=== PATIENT | female | born 1940 | race Caucasian/White ===

== ENCOUNTER 2016-07-20 13:52 | Outpatient (CLI) | payer MEDICARE, BC ==
[2016-07-20 16:55] LABS: INR-International Normal Ratio 2.4; Prothrombin Time 26.4 SEC (12.0-14.7)
== END 2016-07-20 13:53 | disposition home or self-care (01) ==
LOC: MADLAB 13:52
PROVIDERS: ATTEND Nurse Practitioner
DX: I48.91 Unspecified atrial fibrillation (principal)
CPT/HCPCS: 36415; 85610

== ENCOUNTER 2016-08-17 08:55 | Outpatient (CLI) | payer MEDICARE, BC ==
[2016-08-17 09:26] LABS: INR-International Normal Ratio 2.2; Prothrombin Time 24.4 SEC (12.0-14.7)
== END 2016-08-17 08:56 | disposition home or self-care (01) ==
LOC: MADLAB 08:55
PROVIDERS: ATTEND Nurse Practitioner
DX: I48.91 Unspecified atrial fibrillation (principal)
CPT/HCPCS: 36415; 85610

== ENCOUNTER 2016-09-14 09:11 | Outpatient (CLI) | payer MEDICARE, BC ==
[2016-09-14 10:11] LABS: INR-International Normal Ratio 2.4; Prothrombin Time 26.4 SEC (12.0-14.7)
== END 2016-09-14 09:12 | disposition home or self-care (01) ==
LOC: MADLAB 09:11
PROVIDERS: ATTEND Nurse Practitioner
DX: I48.91 Unspecified atrial fibrillation (principal)
CPT/HCPCS: 36415; 85610

== ENCOUNTER 2016-10-12 08:54 | Outpatient (CLI) | payer MEDICARE, BC ==
[2016-10-12 09:22] LABS: INR-International Normal Ratio 3.3; Prothrombin Time 33.4 SEC (12.0-14.7)
== END 2016-10-12 08:55 | disposition home or self-care (01) ==
LOC: MADLAB 08:54
PROVIDERS: ATTEND Nurse Practitioner
DX: I48.91 Unspecified atrial fibrillation (principal)
CPT/HCPCS: 36415; 85610

== ENCOUNTER 2016-10-27 08:34 | Outpatient (CLI) | payer MEDICARE, BC ==
[2016-10-27 09:03] LABS: INR-International Normal Ratio 3.4; Prothrombin Time 33.7 SEC (12.0-14.7)
== END 2016-10-27 08:35 | disposition home or self-care (01) ==
LOC: MADLAB 08:34
PROVIDERS: ATTEND Nurse Practitioner
DX: I48.91 Unspecified atrial fibrillation (principal)
CPT/HCPCS: 36415; 85610

== ENCOUNTER 2016-11-09 09:06 | Outpatient (CLI) | payer MEDICARE, BC ==
[2016-11-09 09:41] LABS: INR-International Normal Ratio 2.4; Prothrombin Time 26.1 SEC (12.0-14.7)
== END 2016-11-09 09:07 | disposition home or self-care (01) ==
LOC: MADLAB 09:06
PROVIDERS: ATTEND Nurse Practitioner
DX: I48.91 Unspecified atrial fibrillation (principal)
CPT/HCPCS: 36415; 85610

== ENCOUNTER 2016-11-23 10:44 | Outpatient (CLI) | payer MEDICARE, BC ==
[2016-11-23 14:54] LABS: INR-International Normal Ratio 2.4; Prothrombin Time 26.1 SEC (12.0-14.7)
== END 2016-11-23 10:45 | disposition home or self-care (01) ==
LOC: MADLAB 10:44
PROVIDERS: ATTEND Nurse Practitioner
DX: I48.91 Unspecified atrial fibrillation (principal)
CPT/HCPCS: 36415; 85610

== ENCOUNTER 2016-12-14 09:27 | Outpatient (CLI) | payer MEDICARE, BC ==
[2016-12-14 09:51] LABS: INR-International Normal Ratio 2.7; Prothrombin Time 28.6 SEC (12.0-14.7)
== END 2016-12-14 09:28 | disposition home or self-care (01) ==
LOC: MADLAB 09:27
PROVIDERS: ATTEND Nurse Practitioner
DX: I48.91 Unspecified atrial fibrillation (principal)
CPT/HCPCS: 36415; 85610

== ENCOUNTER 2017-01-10 09:43 | Outpatient (CLI) | payer MEDICARE, BC ==
[2017-01-10 10:00] LABS: INR-International Normal Ratio 2.9; Prothrombin Time 29.7 SEC (12.0-14.7)
== END 2017-01-10 09:44 | disposition home or self-care (01) ==
LOC: MADLAB 09:43
PROVIDERS: ATTEND Nurse Practitioner
DX: I48.91 Unspecified atrial fibrillation (principal)
CPT/HCPCS: 36415; 85610

== ENCOUNTER 2017-03-09 08:30 | Outpatient (CLI) | payer MEDICARE, BC ==
[2017-03-09 09:01] LABS: INR-International Normal Ratio 2.6; Prothrombin Time 28.5 SEC (12.0-14.7)
== END 2017-03-09 08:31 | disposition home or self-care (01) ==
LOC: MADLAB 08:30
PROVIDERS: ATTEND Nurse Practitioner
DX: I48.91 Unspecified atrial fibrillation (principal)
CPT/HCPCS: 36415; 85610

== ENCOUNTER 2017-04-05 09:11 | Outpatient (CLI) | payer MEDICARE, BC ==
[2017-04-05 10:38] LABS: INR-International Normal Ratio 2.2; Prothrombin Time 25.4 SEC (12.0-14.7)
== END 2017-04-05 09:12 | disposition home or self-care (01) ==
LOC: MADLAB 09:11
PROVIDERS: ATTEND Nurse Practitioner
DX: I48.91 Unspecified atrial fibrillation (principal)
CPT/HCPCS: 36415; 85610

== ENCOUNTER 2017-05-03 09:19 | Outpatient (CLI) | payer MEDICARE, BC ==
[2017-05-03 10:00] LABS: INR-International Normal Ratio 2.4; Prothrombin Time 27.3 SEC (12.0-14.7)
== END 2017-05-03 09:20 | disposition home or self-care (01) ==
LOC: MADLAB 09:19
PROVIDERS: ATTEND Nurse Practitioner
DX: I48.91 Unspecified atrial fibrillation (principal)
CPT/HCPCS: 36415; 85610

== ENCOUNTER 2017-05-31 09:02 | Outpatient (CLI) | payer MEDICARE, BC ==
[2017-05-31 10:37] LABS: INR-International Normal Ratio 2.4; Prothrombin Time 27.3 SEC (12.0-14.7)
== END 2017-05-31 09:03 | disposition home or self-care (01) ==
LOC: MADLABBHPM 09:02
PROVIDERS: ATTEND Nurse Practitioner
DX: I48.91 Unspecified atrial fibrillation (principal)
CPT/HCPCS: 36415; 85610

== ENCOUNTER 2017-06-28 08:48 | Outpatient (CLI) | payer MEDICARE, BC ==
[2017-06-28 09:09] LABS: INR-International Normal Ratio 2.1; Prothrombin Time 23.8 SEC (12.0-14.7)
== END 2017-06-28 08:49 | disposition home or self-care (01) ==
LOC: MADLAB 08:48
PROVIDERS: ATTEND Nurse Practitioner
DX: I48.91 Unspecified atrial fibrillation (principal)
CPT/HCPCS: 36415; 85610

== ENCOUNTER 2017-07-25 08:55 | Outpatient (CLI) | payer MEDICARE, BC ==
[2017-07-25 09:28] LABS: INR-International Normal Ratio 2.1; Prothrombin Time 24.1 SEC (12.0-14.7)
== END 2017-07-25 08:56 | disposition home or self-care (01) ==
LOC: MADLAB 08:55
PROVIDERS: ATTEND Nurse Practitioner
DX: I48.91 Unspecified atrial fibrillation (principal)
CPT/HCPCS: 36415; 85610

== ENCOUNTER 2017-08-23 08:44 | Outpatient (CLI) | payer MEDICARE, BC ==
[2017-08-23 09:36] LABS: INR-International Normal Ratio 2.6; Prothrombin Time 29.1 SEC (12.0-14.7)
== END 2017-08-23 08:45 | disposition home or self-care (01) ==
LOC: MADLAB 08:44
PROVIDERS: ATTEND Nurse Practitioner
DX: I48.91 Unspecified atrial fibrillation (principal)
CPT/HCPCS: 36415; 85610

== ENCOUNTER 2017-09-20 09:01 | Outpatient (CLI) | payer MEDICARE, BC ==
[2017-09-20 10:03] LABS: INR-International Normal Ratio 2.2; Prothrombin Time 25.6 SEC (12.0-14.7)
== END 2017-09-20 09:02 | disposition home or self-care (01) ==
LOC: MADLAB 09:01
PROVIDERS: ATTEND Nurse Practitioner
DX: I48.91 Unspecified atrial fibrillation (principal)
CPT/HCPCS: 36415; 85610

== ENCOUNTER 2017-10-18 09:31 | Outpatient (CLI) | payer MEDICARE, BC ==
[2017-10-18 10:44] LABS: INR-International Normal Ratio 2.2; Prothrombin Time 25.3 SEC (12.0-14.7)
== END 2017-10-18 09:32 | disposition home or self-care (01) ==
LOC: MADLAB 09:31
PROVIDERS: ATTEND Nurse Practitioner
DX: I48.91 Unspecified atrial fibrillation (principal)
CPT/HCPCS: 36415; 85610

== ENCOUNTER 2017-11-15 08:45 | Outpatient (CLI) | payer MEDICARE, BC ==
[2017-11-15 10:56] LABS: INR-International Normal Ratio 2.2; Prothrombin Time 24.9 SEC (12.0-14.7)
== END 2017-11-15 08:46 | disposition home or self-care (01) ==
LOC: MADLAB 08:45
PROVIDERS: ATTEND Nurse Practitioner
DX: I48.91 Unspecified atrial fibrillation (principal)
CPT/HCPCS: 36415; 85610

== ENCOUNTER 2017-12-13 08:19 | Outpatient (CLI) | payer MEDICARE, BC ==
[2017-12-13 09:14] LABS: Prothrombin Time 23.6 SEC (12.0-14.7)
== END 2017-12-13 08:20 | disposition home or self-care (01) ==
LOC: MADLAB 08:19
PROVIDERS: ATTEND Nurse Practitioner
DX: I48.91 Unspecified atrial fibrillation (principal)
CPT/HCPCS: 36415; 85610

== ENCOUNTER 2018-01-16 08:19 | Outpatient (CLI) | payer MEDICARE, BC ==
[2018-01-16 08:50] LABS: INR-International Normal Ratio 2.2; Prothrombin Time 24.4 SEC (12.0-14.7)
== END 2018-01-16 08:20 | disposition home or self-care (01) ==
LOC: MADLAB 08:19
PROVIDERS: ATTEND Nurse Practitioner
DX: I48.91 Unspecified atrial fibrillation (principal)
CPT/HCPCS: 36415; 85610

== ENCOUNTER 2018-02-14 08:27 | Outpatient (CLI) | payer MEDICARE, BC ==
[2018-02-14 09:40] LABS: INR-International Normal Ratio 2.3; Prothrombin Time 25.4 SEC (12.0-14.7)
== END 2018-02-14 08:28 | disposition home or self-care (01) ==
LOC: MADLAB 08:27
PROVIDERS: ATTEND Nurse Practitioner
DX: Z51.81 Encounter for therapeutic drug level monitoring (principal); I48.91 Unspecified atrial fibrillation; Z79.01 Long term (current) use of anticoagulants
CPT/HCPCS: 36415; 85610

== ENCOUNTER 2018-03-14 08:08 | Outpatient (CLI) | payer MEDICARE, BC ==
[2018-03-14 10:26] LABS: INR-International Normal Ratio 2.5; Prothrombin Time 27.3 SEC (12.0-14.7)
== END 2018-03-14 08:09 | disposition home or self-care (01) ==
LOC: MADLAB 08:08
PROVIDERS: ATTEND Nurse Practitioner
DX: I48.91 Unspecified atrial fibrillation (principal)
CPT/HCPCS: 36415; 85610

== ENCOUNTER 2018-05-10 08:34 | Outpatient (CLI) | payer MEDICARE, BC ==
[2018-05-10 09:08] LABS: INR-International Normal Ratio 2.2; Prothrombin Time 24.4 SEC (12.0-14.7)
== END 2018-05-10 08:35 | disposition home or self-care (01) ==
LOC: MADLAB 08:34
PROVIDERS: ATTEND Nurse Practitioner
DX: I48.91 Unspecified atrial fibrillation (principal)
CPT/HCPCS: 36415; 85610

== ENCOUNTER 2018-06-07 08:35 | Outpatient (CLI) | payer MEDICARE, BC ==
[2018-06-07 09:17] LABS: INR-International Normal Ratio 2.7; Prothrombin Time 28.8 SEC (12.0-14.7)
== END 2018-06-07 08:36 | disposition home or self-care (01) ==
LOC: MADLAB 08:35
PROVIDERS: ATTEND Nurse Practitioner
DX: Z51.81 Encounter for therapeutic drug level monitoring (principal); I48.91 Unspecified atrial fibrillation; Z79.01 Long term (current) use of anticoagulants
CPT/HCPCS: 36415; 85610

== ENCOUNTER 2018-08-01 07:54 | Outpatient (CLI) | payer MEDICARE, BC ==
[2018-08-01 09:39] LABS: INR-International Normal Ratio 2.2; Prothrombin Time 24.2 SEC (12.0-14.7)
== END 2018-08-01 07:55 | disposition home or self-care (01) ==
LOC: MADLAB 07:54
PROVIDERS: ATTEND Nurse Practitioner
DX: I48.91 Unspecified atrial fibrillation (principal)
CPT/HCPCS: 36415; 85610

== ENCOUNTER 2018-08-30 08:17 | Outpatient (CLI) | payer MEDICARE, BC ==
[2018-08-30 09:03] LABS: INR-International Normal Ratio 2.5; Prothrombin Time 27.3 SEC (12.0-14.7)
== END 2018-08-30 08:18 | disposition home or self-care (01) ==
LOC: MADLAB 08:17
PROVIDERS: ATTEND Nurse Practitioner
DX: Z51.81 Encounter for therapeutic drug level monitoring (principal); I48.91 Unspecified atrial fibrillation; Z79.01 Long term (current) use of anticoagulants
CPT/HCPCS: 36415; 85610

== ENCOUNTER 2018-09-26 08:42 | Outpatient (CLI) | payer MEDICARE, BC ==
[2018-09-26 09:54] LABS: INR-International Normal Ratio 2.8; Prothrombin Time 29.5 SEC (12.0-14.7)
== END 2018-09-26 08:43 | disposition home or self-care (01) ==
LOC: MADLAB 08:42
PROVIDERS: ATTEND Nurse Practitioner Family
DX: Z51.81 Encounter for therapeutic drug level monitoring (principal); I48.91 Unspecified atrial fibrillation; Z79.01 Long term (current) use of anticoagulants
CPT/HCPCS: 36415; 85610

== ENCOUNTER 2018-10-25 10:28 | Outpatient (CLI) | payer MEDICARE, BC ==
[2018-10-25 11:01] LABS: INR-International Normal Ratio 3.1
== END 2018-10-25 10:29 | disposition home or self-care (01) ==
LOC: MADLAB 10:28
PROVIDERS: ATTEND Nurse Practitioner Family
DX: Z51.81 Encounter for therapeutic drug level monitoring (principal); I48.91 Unspecified atrial fibrillation; Z79.01 Long term (current) use of anticoagulants
CPT/HCPCS: 36415; 85610

== ENCOUNTER 2018-11-08 08:16 | Outpatient (CLI) | payer MEDICARE, BC ==
[2018-11-08 09:11] LABS: INR-International Normal Ratio 2.5; Prothrombin Time 27.4 SEC (12.0-14.7)
== END 2018-11-08 08:17 | disposition home or self-care (01) ==
LOC: MADLABBHPM 08:16
PROVIDERS: ATTEND Nurse Practitioner Family
DX: Z51.81 Encounter for therapeutic drug level monitoring (principal); I48.91 Unspecified atrial fibrillation; Z79.01 Long term (current) use of anticoagulants
CPT/HCPCS: 36415; 85610

== ENCOUNTER 2018-11-22 08:12 | Outpatient (CLI) | payer MEDICARE, BC ==
[2018-11-22 08:33] LABS: INR-International Normal Ratio 2.4
== END 2018-11-22 08:13 | disposition home or self-care (01) ==
LOC: MADLABBHPM 08:12
PROVIDERS: ATTEND Nurse Practitioner Family
DX: Z51.81 Encounter for therapeutic drug level monitoring (principal); I48.91 Unspecified atrial fibrillation; Z79.01 Long term (current) use of anticoagulants
CPT/HCPCS: 36415; 85610

== ENCOUNTER 2018-12-13 07:59 | Outpatient (CLI) | payer MEDICARE, BC ==
[2018-12-13 09:06] LABS: INR-International Normal Ratio 2.2; Prothrombin Time 24.6 SEC (12.0-14.7)
== END 2018-12-13 08:00 | disposition home or self-care (01) ==
LOC: MADLAB 07:59
PROVIDERS: ATTEND Nurse Practitioner Family
DX: Z51.81 Encounter for therapeutic drug level monitoring (principal); I48.91 Unspecified atrial fibrillation; Z79.01 Long term (current) use of anticoagulants
CPT/HCPCS: 36415; 85610

== ENCOUNTER 2019-01-08 07:56 | Outpatient (CLI) | payer MEDICARE, BC ==
[2019-01-08 08:33] LABS: INR-International Normal Ratio 2.5; Prothrombin Time 26.8 SEC (12.0-14.7)
== END 2019-01-08 07:57 | disposition home or self-care (01) ==
LOC: MADLAB 07:56
PROVIDERS: ATTEND Nurse Practitioner Family
DX: Z51.81 Encounter for therapeutic drug level monitoring (principal); I48.2 Chronic atrial fibrillation; Z79.01 Long term (current) use of anticoagulants
CPT/HCPCS: 36415; 85610

== ENCOUNTER 2019-02-07 08:16 | Outpatient (CLI) | payer MEDICARE, BC ==
[2019-02-07 08:40] LABS: INR-International Normal Ratio 2.6; Prothrombin Time 27.3 SEC (12.0-14.7)
== END 2019-02-07 08:17 | disposition home or self-care (01) ==
LOC: MADLAB 08:16
PROVIDERS: ATTEND Nurse Practitioner Family
DX: Z51.81 Encounter for therapeutic drug level monitoring (principal); I48.91 Unspecified atrial fibrillation; Z79.01 Long term (current) use of anticoagulants
CPT/HCPCS: 36415; 85610

== ENCOUNTER 2019-04-04 08:28 | Outpatient (CLI) | payer MEDICARE, BC ==
[2019-04-04 08:49] LABS: INR-International Normal Ratio 1.9; Prothrombin Time 21.4 SEC (12.0-14.7)
== END 2019-04-04 08:29 | disposition home or self-care (01) ==
LOC: MADLAB 08:28
PROVIDERS: ATTEND Internal Medicine Hematology & Oncology
DX: Z51.81 Encounter for therapeutic drug level monitoring (principal); I48.91 Unspecified atrial fibrillation; Z79.01 Long term (current) use of anticoagulants
CPT/HCPCS: 36415; 85610

== ENCOUNTER 2019-04-18 08:23 | Outpatient (CLI) | payer MEDICARE, BC ==
[2019-04-18 08:54] LABS: INR-International Normal Ratio 2.6; Prothrombin Time 27.8 SEC (12.0-14.7)
== END 2019-04-18 08:24 | disposition home or self-care (01) ==
LOC: MADLAB 08:23
PROVIDERS: ATTEND Internal Medicine Hematology & Oncology
DX: I48.91 Unspecified atrial fibrillation (principal); Z79.01 Long term (current) use of anticoagulants
CPT/HCPCS: 36415; 85610

== ENCOUNTER 2019-05-02 08:04 | Outpatient (CLI) | payer MEDICARE, BC ==
[2019-05-02 08:36] LABS: INR-International Normal Ratio 2.6; Prothrombin Time 27.4 SEC (12.0-14.7)
== END 2019-05-02 08:05 | disposition home or self-care (01) ==
LOC: MADLAB 08:04
PROVIDERS: ATTEND Internal Medicine Hematology & Oncology
DX: Z51.81 Encounter for therapeutic drug level monitoring (principal); I48.91 Unspecified atrial fibrillation; Z79.01 Long term (current) use of anticoagulants
CPT/HCPCS: 36415; 85610

== ENCOUNTER 2019-05-29 08:19 | Outpatient (CLI) | payer MEDICARE, BC ==
[2019-05-29 09:05] LABS: INR-International Normal Ratio 2.2; Prothrombin Time 24.2 SEC (12.0-14.7)
== END 2019-05-29 08:20 | disposition home or self-care (01) ==
LOC: MADLAB 08:19
PROVIDERS: ATTEND Internal Medicine Hematology & Oncology
DX: Z51.81 Encounter for therapeutic drug level monitoring (principal); I48.91 Unspecified atrial fibrillation; Z79.01 Long term (current) use of anticoagulants
CPT/HCPCS: 36415; 85610

== ENCOUNTER 2019-06-26 08:16 | Outpatient (CLI) | payer MEDICARE, BC ==
[2019-06-26 08:55] LABS: INR-International Normal Ratio 2.1; Prothrombin Time 23.7 SEC (12.0-14.7)
== END 2019-06-26 08:17 | disposition home or self-care (01) ==
LOC: MADLAB 08:16
PROVIDERS: ATTEND Internal Medicine Hematology & Oncology
DX: Z51.81 Encounter for therapeutic drug level monitoring (principal); I48.91 Unspecified atrial fibrillation; Z79.01 Long term (current) use of anticoagulants
CPT/HCPCS: 36415; 85610

== ENCOUNTER 2019-07-24 08:16 | Outpatient (CLI) | payer MEDICARE, BC ==
[2019-07-24 08:41] LABS: INR-International Normal Ratio 2.5; Prothrombin Time 26.8 SEC (12.0-14.7)
== END 2019-07-24 08:17 | disposition home or self-care (01) ==
LOC: MADLAB 08:16
PROVIDERS: ATTEND Internal Medicine Hematology & Oncology
DX: Z51.81 Encounter for therapeutic drug level monitoring (principal); I48.91 Unspecified atrial fibrillation; Z79.01 Long term (current) use of anticoagulants
CPT/HCPCS: 36415; 85610

== ENCOUNTER 2019-08-22 08:11 | Outpatient (CLI) | payer MEDICARE, BC ==
[2019-08-22 08:34] LABS: INR-International Normal Ratio 2.7; Prothrombin Time 28.2 SEC (12.0-14.7)
== END 2019-08-22 08:12 | disposition home or self-care (01) ==
LOC: MADLAB 08:11
PROVIDERS: ATTEND Internal Medicine Hematology & Oncology
DX: Z51.81 Encounter for therapeutic drug level monitoring (principal); I48.91 Unspecified atrial fibrillation; Z79.01 Long term (current) use of anticoagulants
CPT/HCPCS: 36415; 85610

== ENCOUNTER 2019-09-19 08:21 | Outpatient (CLI) | payer MEDICARE, BC ==
[2019-09-19 21:55] LABS: INR-International Normal Ratio 2.9; Prothrombin Time 30.4 SEC (12.0-14.7)
== END 2019-09-19 08:22 | disposition home or self-care (01) ==
LOC: MADLABBHPM 08:21
PROVIDERS: ATTEND Internal Medicine Hematology & Oncology
DX: Z51.81 Encounter for therapeutic drug level monitoring (principal); I48.91 Unspecified atrial fibrillation; Z79.01 Long term (current) use of anticoagulants
CPT/HCPCS: 36415; 85610

== ENCOUNTER 2019-11-14 08:27 | Outpatient (CLI) | payer MEDICARE, BC ==
[2019-11-14 08:50] LABS: INR-International Normal Ratio 2.5; Prothrombin Time 26.9 sec (12.0-14.7)
== END 2019-11-14 08:28 | disposition home or self-care (01) ==
LOC: MADLAB 08:27
PROVIDERS: ATTEND Internal Medicine Hematology & Oncology
DX: Z51.81 Encounter for therapeutic drug level monitoring (principal); I48.20 Chronic atrial fibrillation, unspecified; Z79.01 Long term (current) use of anticoagulants
CPT/HCPCS: 36415; 85610

== ENCOUNTER 2019-12-12 08:13 | Outpatient (CLI) | payer MEDICARE, BC ==
[2019-12-12 08:40] LABS: Prothrombin Time 31.1 sec (12.0-14.7)
== END 2019-12-12 08:14 | disposition home or self-care (01) ==
LOC: MADLAB 08:13
PROVIDERS: ATTEND Internal Medicine Hematology & Oncology
DX: Z51.81 Encounter for therapeutic drug level monitoring (principal); I48.91 Unspecified atrial fibrillation; Z79.01 Long term (current) use of anticoagulants
CPT/HCPCS: 36415; 85610

== ENCOUNTER 2020-01-15 08:22 | Outpatient (CLI) | payer MEDICARE, BC ==
[2020-01-15 08:42] LABS: INR-International Normal Ratio 3.9; Prothrombin Time 37.8 sec (12.0-14.7)
== END 2020-01-15 08:23 | disposition home or self-care (01) ==
LOC: MADLAB 08:22
PROVIDERS: ATTEND Internal Medicine Cardiovascular Disease
DX: Z51.81 Encounter for therapeutic drug level monitoring (principal); I48.20 Chronic atrial fibrillation, unspecified; Z79.01 Long term (current) use of anticoagulants
CPT/HCPCS: 36415; 85610

== ENCOUNTER 2020-01-29 08:26 | Outpatient (CLI) | payer MEDICARE, BC ==
[2020-01-29 08:43] LABS: INR-International Normal Ratio 3.5; Prothrombin Time 35.1 sec (12.0-14.7)
== END 2020-01-29 08:27 | disposition home or self-care (01) ==
LOC: MADLAB 08:26
PROVIDERS: ATTEND Internal Medicine Cardiovascular Disease
DX: I48.91 Unspecified atrial fibrillation (principal)
CPT/HCPCS: 36415; 85610

== ENCOUNTER 2020-02-13 09:05 | Outpatient (CLI) | payer MEDICARE, BC ==
[2020-02-13 09:37] LABS: INR-International Normal Ratio 3.3; Prothrombin Time 33.6 sec (12.0-14.7)
== END 2020-02-13 09:06 | disposition home or self-care (01) ==
LOC: MADLAB 09:05
PROVIDERS: ATTEND Internal Medicine Cardiovascular Disease
DX: Z51.81 Encounter for therapeutic drug level monitoring (principal); I48.91 Unspecified atrial fibrillation; Z79.01 Long term (current) use of anticoagulants
CPT/HCPCS: 36415; 85610

== ENCOUNTER 2020-02-26 07:55 | Outpatient (CLI) | payer MEDICARE, BC ==
[2020-02-26 08:21] LABS: INR-International Normal Ratio 3.6; Prothrombin Time 35.3 sec (12.0-14.7)
== END 2020-02-26 07:56 | disposition home or self-care (01) ==
LOC: MADLAB 07:55
PROVIDERS: ATTEND Internal Medicine Cardiovascular Disease
DX: Z51.81 Encounter for therapeutic drug level monitoring (principal); I48.91 Unspecified atrial fibrillation; Z79.01 Long term (current) use of anticoagulants
CPT/HCPCS: 36415; 85610

== ENCOUNTER 2020-03-12 08:06 | Outpatient (CLI) | payer MEDICARE, BC ==
[2020-03-12 08:28] LABS: INR-International Normal Ratio 3.7; Prothrombin Time 36.6 sec (12.0-14.7)
== END 2020-03-12 08:07 | disposition home or self-care (01) ==
LOC: MADLAB 08:06
PROVIDERS: ATTEND Internal Medicine Hematology & Oncology
DX: Z51.81 Encounter for therapeutic drug level monitoring (principal); I48.20 Chronic atrial fibrillation, unspecified; Z79.01 Long term (current) use of anticoagulants
CPT/HCPCS: 36415; 85610

== ENCOUNTER 2020-03-19 07:55 | Outpatient (CLI) | payer MEDICARE, BC ==
[2020-03-19 08:14] LABS: INR-International Normal Ratio 2.4; Prothrombin Time 25.7 sec (12.0-14.7)
== END 2020-03-19 07:56 | disposition home or self-care (01) ==
LOC: MADLAB 07:55
PROVIDERS: ATTEND Internal Medicine Cardiovascular Disease
DX: Z51.81 Encounter for therapeutic drug level monitoring (principal); I48.91 Unspecified atrial fibrillation; Z79.01 Long term (current) use of anticoagulants
CPT/HCPCS: 36415; 85610

== ENCOUNTER 2020-04-01 08:06 | Outpatient (CLI) | payer MEDICARE, BC ==
[2020-04-01 08:35] LABS: INR-International Normal Ratio 2.2
== END 2020-04-01 08:07 | disposition home or self-care (01) ==
LOC: MADLAB 08:06
PROVIDERS: ATTEND Internal Medicine Cardiovascular Disease
DX: I48.91 Unspecified atrial fibrillation (principal)
CPT/HCPCS: 36415; 85610

== ENCOUNTER 2020-05-08 15:14 | Inpatient (IN) | payer MEDICARE, BC ==
[2020-05-08] MEDS ORDERED: Senokot S 8.6-50 MG TAB PO PRN (20:22)
[2020-05-08] MEDS ORDERED: Cyclobenzaprine 10 MG TAB PO PRN (20:23)
[2020-05-08] MEDS ORDERED: Warfarin Sodium 5 MG TAB PO SCH (21:00)
[2020-05-08] MEDS: Famotidine 20 MG TAB PO SCH (21:32)
[2020-05-08] MEDS: Enoxaparin Sodium 80 MG/0.8 ML SYRINGE SC SCH (21:32)
[2020-05-08] MEDS: Metoprolol Tartrate 25 MG TAB PO SCH (21:33)
[2020-05-08] MEDS: Senokot S 8.6-50 MG TAB PO SCH (21:33)
[2020-05-08] MEDS: Gabapentin 100 MG CAP PO SCH (21:33)
[2020-05-08] MEDS: Ascorbic Acid 500 mg Chewable Tablet PO SCH (21:33)
[2020-05-08] MEDS: Acetaminophen 500 MG TAB PO SCH (23:37)
[2020-05-09] MEDS: Acetaminophen 500 MG TAB PO SCH ×4 (05:13→23:48)
[2020-05-09 07:28] LABS: INR-International Normal Ratio 1.6
[2020-05-09] MEDS: Gabapentin 100 MG CAP PO SCH ×3 (08:48→20:15)
[2020-05-09] MEDS: Ascorbic Acid 500 mg Chewable Tablet PO SCH ×2 (08:48→20:17)
[2020-05-09] MEDS: Famotidine 20 MG TAB PO SCH ×2 (08:48→20:17)
[2020-05-09] MEDS: Calcium Carbonate 500 MG TAB PO SCH (08:48)
[2020-05-09] MEDS: Senokot S 8.6-50 MG TAB PO SCH (08:56)
[2020-05-09] MEDS: Enoxaparin Sodium 80 MG/0.8 ML SYRINGE SC SCH ×2 (08:56→20:18)
[2020-05-09] MEDS: Ferrous Sulfate 325 MG TAB PO SCH ×2 (08:57→17:34)
[2020-05-09] MEDS: Metoprolol Tartrate 25 MG TAB PO SCH ×2 (08:57→20:14)
[2020-05-09] MEDS ORDERED: Polyethylene Glycol 3350 17 GM Packet PO SCH (09:00)
[2020-05-10] MEDS: Acetaminophen 500 MG TAB PO SCH ×4 (05:46→23:30)
[2020-05-10 05:47] LABS: Hemoglobin 7.4 g/dL (12.0-16.0); Platelet Count 295 thou/uL (130-400)
[2020-05-10] MEDS: Ferrous Sulfate 325 MG TAB PO SCH ×2 (10:25→17:21)
[2020-05-10] MEDS: Metoprolol Tartrate 25 MG TAB PO SCH ×2 (10:25→20:56)
[2020-05-10] MEDS: Famotidine 20 MG TAB PO SCH ×2 (10:25→20:55)
[2020-05-10] MEDS: Gabapentin 100 MG CAP PO SCH ×3 (10:25→20:55)
[2020-05-10] MEDS: Ascorbic Acid 500 mg Chewable Tablet PO SCH ×2 (10:26→20:55)
[2020-05-10] MEDS: Calcium Carbonate 500 MG TAB PO SCH (10:26)
[2020-05-10] MEDS: Enoxaparin Sodium 80 MG/0.8 ML SYRINGE SC SCH ×2 (10:30→21:00)
--- NOTE | 2020-05-10 10:54 | HP ---
PRIMARY CARE PHYSICIAN: Out of town. REASON FOR ADMISSION: For acute rehabilitation at [facility] status post a fall leading to a right hip fracture status post ORIF and worsening left facial basal cell carcinoma. HISTORY OF PRESENT ILLNESS: Ms. Richey is an 79-year-old female with a medical history of atrial fibrillation, squamous cell carcinoma diagnosed in 2006. The patient experienced a mechanical fall in her home setting in [place] with family close in proximity with frequent contact. She does have a history of chronic Coumadin therapy due to atrial fibrillation. She did not have any loss of consciousness and on presentation in the emergency room, she was noted to have deterioration of the left side of her face. She was diagnosed with squamous cell carcinoma in 2006 with no followup. The patient states she had been isolated since September secondary to COVID- pandemic and she comes from the area that has progressively worsened in the last month. She has kept indoors since COV- and family has not come in yet. In the emergency room, she was noted to have atrial fibrillation with RVR. She was admitted for right hip fracture secondary to the mechanical fall and evaluation has indicated that the left side of her face and back with suspected squamous cell carcinoma. The patient had an ORIF of the right hip fracture repaired by Dr. Brooke. She was able to tolerate the procedure well. On the May 03, she was seen by the Oncology team due to deterioration of her face, she had a biopsy and pathology confirmed basal cell carcinoma. The lesion is likely metastatic and unresectable and not amendable to radiation. The patient recommended by Oncology to follow up outpatient with Dr. Mena for further treatment plan and consider hospice as a reasonable choice of care. Due to this, the patient was transferred to [facility] for skilled rehabilitation as she was physically deconditioned. She was continued on Coumadin bridged with Lovenox postoperatively. The patient had a hemoglobin of 7.7 upon discharge with an INR of 1.5. Upon evaluation of the patient, she complained of some left neck pain. She states pain is controlled with the current pain medication. She does not know what plan she would have for long-term care postoperatively for now. She complains of some mild pain to the right hip at the site of surgery. PAST MEDICAL HISTORY: Atrial fibrillation, squamous cell carcinoma diagnosed in 2006, and hypertension. PAST SURGICAL HISTORY: The patient has a history of cholecystectomy. ALLERGIES: NO KNOWN DRUG ALLERGIES. MEDICATIONS: 1. Warfarin 5 mg. 2. Diltiazem XR 180 mg. 3. Lisinopril/hydrochlorothiazide 10/12.5. 4. Ascorbic acid 500 b.i.d. 5. Calcium carbonate 500 daily. 6. Flexeril 5 mg p.o. t.i.d. p.r.n. 7. Lovenox 80 b.i.d. 8. Pepcid 20 b.i.d. 9. Ferrous sulfate 325 b.i.d. 10. Gabapentin 100 b.i.d. 11. Metoprolol 12.5 mg b.i.d. SOCIAL HISTORY: The patient denies tobacco use, alcohol use, or illicit drug use. The patient lives at home by herself with family close by. FAMILY HISTORY: The patient states father of unknown medical history. Mother from unknown medical history. CODE STATUS: The patient is a DNR, confirmed by the patient. REVIEW OF SYSTEMS: CONSTITUTIONAL: Alert. Complains of generalized weakness. EYES: Left ectropion. ENT: Denies difficulty swallowing or irritation to the throat. Complains of the hearing loss to the left. RESPIRATORY: Denies any shortness of breath or cough. CARDIOVASCULAR: Denies any chest pain, palpitations, or orthopnea. GASTROINTESTINAL: Denies any nausea or vomiting. MUSCULOSKELETAL: Limited mobility due to recent right hip fracture and pain. NEUROLOGIC: Denies any numbness or tingling to extremities. Complains of left facial droop. SKIN: The patient does have a significant necrotic left neck lesion to the side of the face and some eye changes noted. PSYCHIATRIC: Denies any hallucinations or delusions. PHYSICAL EXAM: VITAL SIGNS: Blood pressure 97.6, Pulse 90, Respirations 18, Sp02 Nasal cannula 95%, Temperature 97.6 GENERAL: Elderly female, awake, alert, in no distress HEENT: Head is atraumatic, extensive decay to left lateral face involving the anterior mandible extending to the posterior neck. Decay goes to the subcutaneous tissue, muscle exposed in some areas, no visible bone, bleeding noted and very malodorous. Left sided facial droop, unable to life eyebrow, unable to close left eye, left eye with excessive tearing, equal pupils bilateral. Nose normal, pharynx normal, no oral involvement, moist oral mucous membrane. Left hear hearing loss. NECK: No cervical spine tenderness, Trachea is midline. RESPIRATORY: No respiratory distress, bilateral breath sounds, no wheezing, rales, or rhonchi. CARDIOVASCULAR: Irregularly irregular rate ABDOMEN:Positive bowel sounds, soft, nontender, nondistended HIP: Healing incision with [address], tenderness to palpation EXTREMITIES: Moves all extremities NEUROLOGIC: GCS 15. Left-sided facial asymmetry. ASSESSMENT: 1. Physical deconditioning. 2. Gait instability. 3. Basal cell carcinoma to left face and neck. 4. Status post fall on Coumadin. 5. Right intertrochanteric femur fracture status post open reduction and internal fixation. 6. Atrial fibrillation with rapid ventricular response improved with control. 7. Hypertension. 8. No tobacco use. 9. Gait instability. PLAN: The patient is an 79-year-old female, who has been admitted to [facility] for skilled rehabilitation. We will consult Physical Therapy to help with gait strengthening and ambulation. We will consult Occupational Therapy to help with activities of daily living. We will consult with pharmacist to help with Lovenox and Coumadin bridge due to her atrial fibrillation. We will monitor the patient closely for any hemodynamic instability. We will change the dressing to incision sites routinely and the patient to follow up with the Dr. Brooke, orthopedic surgeon. We will assist the patient in planning follow up with Dr. Mena, oncologists due to the metastatic basal cell carcinoma. We will change dressings to face daily. We will place the patient on DVT prophylaxis with the Coumadin and Lovenox for now and on GI prophylaxis with Pepcid. We will monitor hemoglobin closely due to significant acute blood loss anemia due to recent surgery. Code status, the patient is a DNR. Total times used to prepare this history and physical is greater than 45 minutes. Job ID: [id number] [facility]
[2020-05-10] MEDS: Warfarin Sodium 5 MG TAB PO SCH (17:21)
[2020-05-10] MEDS: Ondansetron ODT 4 MG TAB PO PRN (18:30)
[2020-05-11] MEDS: Acetaminophen 500 MG TAB PO SCH ×3 (06:11→17:40)
[2020-05-11 06:46] LABS: INR-International Normal Ratio 2.3; Prothrombin Time 25.8 sec (12.0-14.7)
[2020-05-11 06:52] LABS: Calc. Creatinine Clearance 97 mL/min (70-130); Estimated GFR-MDRD Greater than 90
[2020-05-11] MEDS: Ferrous Sulfate 325 MG TAB PO SCH ×2 (09:06→17:41)
[2020-05-11] MEDS: Famotidine 20 MG TAB PO SCH ×2 (09:07→20:38)
[2020-05-11] MEDS: Calcium Carbonate 500 MG TAB PO SCH (09:07)
[2020-05-11] MEDS: Metoprolol Tartrate 25 MG TAB PO SCH ×2 (09:07→20:37)
[2020-05-11] MEDS: Gabapentin 100 MG CAP PO SCH ×3 (09:07→20:36)
[2020-05-11] MEDS: Ascorbic Acid 500 mg Chewable Tablet PO SCH ×2 (09:07→20:36)
[2020-05-11] MEDS: Enoxaparin Sodium 80 MG/0.8 ML SYRINGE SC SCH ×2 (09:08→20:38)
[2020-05-11] MEDS: Guaifenesin DM 100-10/5 ML UDCUP PO PRN ×3 (12:03→20:38)
[2020-05-11] MEDS: Warfarin Sodium 5 MG TAB PO SCH (17:42)
[2020-05-12] MEDS: Acetaminophen 500 MG TAB PO SCH ×5 (00:13→23:40)
[2020-05-12 05:24] LABS: INR-International Normal Ratio 2.8; Prothrombin Time 30.5 sec (12.0-14.7)
[2020-05-12] MEDS: Calcium Carbonate 500 MG TAB PO SCH (07:58)
[2020-05-12] MEDS: Enoxaparin Sodium 80 MG/0.8 ML SYRINGE SC SCH (07:58)
[2020-05-12] MEDS: Gabapentin 100 MG CAP PO SCH ×3 (07:59→19:51)
[2020-05-12] MEDS: Ferrous Sulfate 325 MG TAB PO SCH ×2 (07:59→16:59)
[2020-05-12] MEDS: Ascorbic Acid 500 mg Chewable Tablet PO SCH ×2 (08:00→19:51)
[2020-05-12] MEDS: Metoprolol Tartrate 25 MG TAB PO SCH ×2 (08:00→19:55)
[2020-05-12] MEDS: Famotidine 20 MG TAB PO SCH ×2 (08:00→19:51)
[2020-05-12] MEDS: Guaifenesin DM 100-10/5 ML UDCUP PO PRN ×2 (14:25→20:00)
[2020-05-12] MEDS ORDERED: Warfarin Sodium 2 MG TAB PO SCH (17:00)
[2020-05-12] MEDS: Ondansetron ODT 4 MG TAB PO PRN (17:57)
[2020-05-13 05:42] LABS: Hemoglobin 6.9 g/dL (12.0-16.0); Platelet Count 224 thou/uL (130-400)
[2020-05-13 05:50] LABS: INR-International Normal Ratio 3.4; Prothrombin Time 35.4 sec (12.0-14.7)
[2020-05-13] MEDS: Acetaminophen 500 MG TAB PO SCH ×3 (05:52→17:34)
[2020-05-13] MEDS: Ascorbic Acid 500 mg Chewable Tablet PO SCH ×2 (08:24→20:42)
[2020-05-13] MEDS: Gabapentin 100 MG CAP PO SCH ×3 (08:24→20:41)
[2020-05-13] MEDS: Metoprolol Tartrate 25 MG TAB PO SCH ×2 (08:24→20:41)
[2020-05-13] MEDS: Famotidine 20 MG TAB PO SCH ×2 (08:25→20:41)
[2020-05-13] MEDS: Calcium Carbonate 500 MG TAB PO SCH (08:25)
[2020-05-13] MEDS: Ferrous Sulfate 325 MG TAB PO SCH ×2 (08:25→17:34)
[2020-05-13] MEDS: Guaifenesin DM 100-10/5 ML UDCUP PO PRN ×2 (16:14→20:42)
[2020-05-14] MEDS: Acetaminophen 500 MG TAB PO SCH ×4 (00:51→16:59)
[2020-05-14 07:19] LABS: INR-International Normal Ratio 3.8; Prothrombin Time 38.2 sec (12.0-14.7)
[2020-05-14] MEDS: Metoprolol Tartrate 25 MG TAB PO SCH ×2 (08:27→20:29)
[2020-05-14] MEDS: Calcium Carbonate 500 MG TAB PO SCH (08:27)
[2020-05-14] MEDS: Ascorbic Acid 500 mg Chewable Tablet PO SCH ×2 (08:27→20:26)
[2020-05-14] MEDS: Gabapentin 100 MG CAP PO SCH ×3 (08:27→20:26)
[2020-05-14] MEDS: Ferrous Sulfate 325 MG TAB PO SCH ×2 (08:29→16:59)
[2020-05-14] MEDS: Famotidine 20 MG TAB PO SCH ×2 (08:29→20:26)
[2020-05-15] MEDS: Acetaminophen 500 MG TAB PO SCH ×5 (00:06→23:40)
[2020-05-15] MEDS: Guaifenesin DM 100-10/5 ML UDCUP PO PRN ×2 (05:32→21:22)
[2020-05-15 05:34] LABS: INR-International Normal Ratio 3.5; Prothrombin Time 36.2 sec (12.0-14.7)
[2020-05-15] MEDS: Gabapentin 100 MG CAP PO SCH ×3 (08:29→21:18)
[2020-05-15] MEDS: Famotidine 20 MG TAB PO SCH ×2 (08:29→21:16)
[2020-05-15] MEDS: Calcium Carbonate 500 MG TAB PO SCH (08:30)
[2020-05-15] MEDS: Metoprolol Tartrate 25 MG TAB PO SCH ×2 (08:30→21:17)
[2020-05-15] MEDS: Ferrous Sulfate 325 MG TAB PO SCH ×2 (08:30→17:41)
[2020-05-15] MEDS: Ascorbic Acid 500 mg Chewable Tablet PO SCH ×2 (08:30→21:16)
[2020-05-15] MEDS: Ondansetron ODT 4 MG TAB PO PRN (15:56)
[2020-05-16 05:33] LABS: Hemoglobin 7.1 g/dL (12.0-16.0); Platelet Count 325 thou/uL (130-400)
[2020-05-16 05:45] LABS: INR-International Normal Ratio 3.1
[2020-05-16] MEDS: Acetaminophen 500 MG TAB PO SCH ×3 (06:32→17:34)
[2020-05-16] MEDS: Calcium Carbonate 500 MG TAB PO SCH (08:23)
[2020-05-16] MEDS: Metoprolol Tartrate 25 MG TAB PO SCH ×2 (08:23→20:59)
[2020-05-16] MEDS: Ascorbic Acid 500 mg Chewable Tablet PO SCH ×2 (08:23→21:00)
[2020-05-16] MEDS: Ferrous Sulfate 325 MG TAB PO SCH ×2 (08:23→17:34)
[2020-05-16] MEDS: Famotidine 20 MG TAB PO SCH ×2 (08:24→20:57)
[2020-05-16] MEDS: Gabapentin 100 MG CAP PO SCH ×3 (08:24→20:58)
[2020-05-16] MEDS: Ondansetron ODT 4 MG TAB PO PRN ×2 (08:33→16:25)
--- NOTE | 2020-05-16 11:32 | RAD ---
PORTABLE CHEST: History: Hypoxia Comparison: 05-02-2020 FINDINGS: Heart size is enlarged. There is patchy bilateral infiltrative lung changes seen, new as compared to the prior exam. IMPRESSION: Bilateral infiltrates. This would be suspicious for Covid pneumonia. POS: SHAY
[2020-05-16] MEDS ORDERED: predniSONE 20 MG TAB PO SCH (16:30)
[2020-05-16] MEDS ORDERED: Warfarin Sodium 2 MG TAB PO SCH (17:00)
[2020-05-16] MEDS ORDERED: Azithromycin 250 MG TAB PO SCH (17:15)
[2020-05-16] MEDS: Ipratropium/Albuterol Sulfate 4 GM AER IH SCH (17:35)
[2020-05-16] MEDS: guaiFENesin/DM ER PO SCH (20:58)
[2020-05-17] MEDS: Acetaminophen 500 MG TAB PO SCH ×4 (05:16→17:09)
[2020-05-17 06:22] LABS: INR-International Normal Ratio 2.3; Prothrombin Time 26.1 sec (12.0-14.7)
[2020-05-17] MEDS: Famotidine 20 MG TAB PO SCH ×2 (09:06→21:43)
[2020-05-17] MEDS: predniSONE 20 MG TAB PO SCH (09:07)
[2020-05-17] MEDS: guaiFENesin/DM ER PO SCH ×2 (09:07→21:43)
[2020-05-17] MEDS: Metoprolol Tartrate 25 MG TAB PO SCH ×2 (09:07→21:44)
[2020-05-17] MEDS: Gabapentin 100 MG CAP PO SCH ×3 (09:07→21:43)
[2020-05-17] MEDS: Ipratropium/Albuterol Sulfate 4 GM AER IH SCH ×2 (09:08→21:54)
[2020-05-17] MEDS: Ferrous Sulfate 325 MG TAB PO SCH ×2 (09:11→17:09)
[2020-05-17] MEDS: Ascorbic Acid 500 mg Chewable Tablet PO SCH ×2 (11:08→21:43)
[2020-05-17] MEDS: Cholecalciferol (Vitamin D3) 400 UNITS TAB PO SCH (11:08)
[2020-05-17] MEDS: Zinc Sulfate 220 MG CAP PO SCH (11:08)
[2020-05-17] MEDS: Calcium Carbonate 500 MG TAB PO SCH (11:09)
[2020-05-17 13:53] LABS: SARS-CoV-2 MS2 Positive; SARS-CoV-2 N Gene Positive; SARS-CoV-2 S Gene Positive; SARS-CoV-2 by NAA DETECTED (NotDetected); SARS-CoV-2 orf1ab Positive
[2020-05-17] MEDS ORDERED: Warfarin Sodium 2 MG TAB PO SCH (17:00)
[2020-05-17] MEDS: Azithromycin 250 MG TAB PO SCH (17:09)
[2020-05-17] MEDS: Ipratropium/Albuterol Sulfate 4 GM AER IH PRN (17:09)
[2020-05-18 04:54] LABS: Prothrombin Time 32.2 sec (12.0-14.7)
[2020-05-18] MEDS: Acetaminophen 500 MG TAB PO SCH ×4 (05:27→17:07)
[2020-05-18] MEDS: Ipratropium/Albuterol Sulfate 4 GM AER IH SCH ×2 (08:31→21:00)
[2020-05-18] MEDS: Metoprolol Tartrate 25 MG TAB PO SCH ×2 (08:32→20:48)
[2020-05-18] MEDS: predniSONE 20 MG TAB PO SCH (08:32)
[2020-05-18] MEDS: Famotidine 20 MG TAB PO SCH ×2 (08:32→20:48)
[2020-05-18] MEDS: guaiFENesin/DM ER PO SCH ×2 (08:32→20:50)
[2020-05-18] MEDS: Gabapentin 100 MG CAP PO SCH ×3 (08:32→20:49)
[2020-05-18] MEDS: Ferrous Sulfate 325 MG TAB PO SCH ×2 (12:08→17:07)
[2020-05-18] MEDS: Calcium Carbonate 500 MG TAB PO SCH (12:08)
[2020-05-18] MEDS: Zinc Sulfate 220 MG CAP PO SCH (12:08)
[2020-05-18] MEDS: Cholecalciferol (Vitamin D3) 400 UNITS TAB PO SCH (12:08)
[2020-05-18] MEDS: Ascorbic Acid 500 mg Chewable Tablet PO SCH ×2 (12:08→20:48)
[2020-05-18] MEDS ORDERED: Warfarin Sodium 1 MG TAB PO SCH (17:00)
[2020-05-18] MEDS: Azithromycin 250 MG TAB PO SCH (17:07)
[2020-05-19] MEDS: Acetaminophen 500 MG TAB PO SCH ×5 (01:01→23:59)
[2020-05-19 07:56] LABS: INR-International Normal Ratio 3.8; Prothrombin Time 38.6 sec (12.0-14.7)
[2020-05-19] MEDS: Zinc Sulfate 220 MG CAP PO SCH (09:17)
[2020-05-19] MEDS: guaiFENesin/DM ER PO SCH ×2 (09:17→20:17)
[2020-05-19] MEDS: Metoprolol Tartrate 25 MG TAB PO SCH ×2 (09:18→20:18)
[2020-05-19] MEDS: Calcium Carbonate 500 MG TAB PO SCH (09:18)
[2020-05-19] MEDS: Ascorbic Acid 500 mg Chewable Tablet PO SCH ×2 (09:18→20:18)
[2020-05-19] MEDS: Famotidine 20 MG TAB PO SCH ×2 (09:18→20:17)
[2020-05-19] MEDS: predniSONE 20 MG TAB PO SCH (09:19)
[2020-05-19] MEDS: Gabapentin 100 MG CAP PO SCH ×3 (09:19→20:17)
[2020-05-19] MEDS: Ferrous Sulfate 325 MG TAB PO SCH ×2 (09:19→17:39)
[2020-05-19] MEDS: Cholecalciferol (Vitamin D3) 400 UNITS TAB PO SCH (09:19)
[2020-05-19] MEDS: Ipratropium/Albuterol Sulfate 4 GM AER IH SCH ×2 (09:22→20:19)
[2020-05-19] MEDS: Azithromycin 250 MG TAB PO SCH (17:39)
[2020-05-20] MEDS: Acetaminophen 500 MG TAB PO SCH ×4 (05:37→23:53)
[2020-05-20 06:38] LABS: Prothrombin Time 40.5 sec (12.0-14.7)
[2020-05-20 06:42] LABS: INR-International Normal Ratio 4.1
[2020-05-20] MEDS: Calcium Carbonate 500 MG TAB PO SCH (08:08)
[2020-05-20] MEDS: predniSONE 20 MG TAB PO SCH (08:08)
[2020-05-20] MEDS: Gabapentin 100 MG CAP PO SCH ×3 (08:08→20:16)
[2020-05-20] MEDS: guaiFENesin/DM ER PO SCH ×2 (08:08→20:17)
[2020-05-20] MEDS: Ascorbic Acid 500 mg Chewable Tablet PO SCH ×2 (08:08→20:17)
[2020-05-20] MEDS: Metoprolol Tartrate 25 MG TAB PO SCH ×2 (08:09→20:17)
[2020-05-20] MEDS: Famotidine 20 MG TAB PO SCH ×2 (08:09→20:17)
[2020-05-20] MEDS: Zinc Sulfate 220 MG CAP PO SCH (08:10)
[2020-05-20] MEDS: Cholecalciferol (Vitamin D3) 400 UNITS TAB PO SCH (08:10)
[2020-05-20] MEDS: Ferrous Sulfate 325 MG TAB PO SCH ×2 (08:10→17:39)
[2020-05-20] MEDS: Ipratropium/Albuterol Sulfate 4 GM AER IH SCH ×2 (08:30→20:17)
[2020-05-20] MEDS ORDERED: Warfarin Sodium 1 MG TAB PO SCH (17:00)
[2020-05-20] MEDS: Azithromycin 250 MG TAB PO SCH (17:39)
[2020-05-21] MEDS: Acetaminophen 500 MG TAB PO SCH ×3 (05:06→17:26)
[2020-05-21 07:17] LABS: INR-International Normal Ratio 3.1; Prothrombin Time 32.5 sec (12.0-14.7)
[2020-05-21] MEDS: Gabapentin 100 MG CAP PO SCH ×3 (08:11→20:00)
[2020-05-21] MEDS: Zinc Sulfate 220 MG CAP PO SCH (08:12)
[2020-05-21] MEDS: Famotidine 20 MG TAB PO SCH ×2 (08:12→20:02)
[2020-05-21] MEDS: guaiFENesin/DM ER PO SCH ×2 (08:12→20:02)
[2020-05-21] MEDS: Cholecalciferol (Vitamin D3) 400 UNITS TAB PO SCH (08:12)
[2020-05-21] MEDS: predniSONE 20 MG TAB PO SCH (08:13)
[2020-05-21] MEDS: Ferrous Sulfate 325 MG TAB PO SCH ×2 (08:13→17:19)
[2020-05-21] MEDS: Metoprolol Tartrate 25 MG TAB PO SCH ×2 (08:13→20:00)
[2020-05-21] MEDS: Ascorbic Acid 500 mg Chewable Tablet PO SCH ×2 (08:13→20:00)
[2020-05-21] MEDS: Calcium Carbonate 500 MG TAB PO SCH (08:13)
[2020-05-21] MEDS: Ipratropium/Albuterol Sulfate 4 GM AER IH SCH ×2 (08:14→20:01)
[2020-05-21] MEDS ORDERED: Azithromycin 250 MG TAB PO SCH (17:00)
[2020-05-22] MEDS: Acetaminophen 500 MG TAB PO SCH ×5 (00:48→23:39)
[2020-05-22 07:16] LABS: INR-International Normal Ratio 2.3; Prothrombin Time 25.8 sec (12.0-14.7)
[2020-05-22] MEDS: Metoprolol Tartrate 25 MG TAB PO SCH ×2 (08:04→21:06)
[2020-05-22] MEDS: Zinc Sulfate 220 MG CAP PO SCH (08:04)
[2020-05-22] MEDS: Cholecalciferol (Vitamin D3) 400 UNITS TAB PO SCH (08:04)
[2020-05-22] MEDS: Famotidine 20 MG TAB PO SCH ×2 (08:04→21:06)
[2020-05-22] MEDS: Gabapentin 100 MG CAP PO SCH ×3 (08:05→21:07)
[2020-05-22] MEDS: Ferrous Sulfate 325 MG TAB PO SCH ×2 (08:05→17:13)
[2020-05-22] MEDS: Calcium Carbonate 500 MG TAB PO SCH (08:05)
[2020-05-22] MEDS: Ascorbic Acid 500 mg Chewable Tablet PO SCH ×2 (08:05→21:07)
[2020-05-22] MEDS: guaiFENesin/DM ER PO SCH ×2 (08:07→21:05)
[2020-05-22] MEDS: Ipratropium/Albuterol Sulfate 4 GM AER IH SCH ×2 (11:10→21:08)
[2020-05-22] MEDS: Ipratropium/Albuterol Sulfate 4 GM AER IH PRN (11:11)
[2020-05-22] MEDS: Warfarin Sodium 2 MG TAB PO SCH (17:13)
[2020-05-23] MEDS: Acetaminophen 500 MG TAB PO SCH ×4 (05:35→23:50)
[2020-05-23 05:45] LABS: INR-International Normal Ratio 1.7; Prothrombin Time 20.6 sec (12.0-14.7)
[2020-05-23] MEDS: Ascorbic Acid 500 mg Chewable Tablet PO SCH ×2 (09:34→20:05)
[2020-05-23] MEDS: Cholecalciferol (Vitamin D3) 400 UNITS TAB PO SCH (09:34)
[2020-05-23] MEDS: guaiFENesin/DM ER PO SCH ×2 (09:34→20:03)
[2020-05-23] MEDS: Ferrous Sulfate 325 MG TAB PO SCH ×2 (09:34→17:47)
[2020-05-23] MEDS: Zinc Sulfate 220 MG CAP PO SCH (09:34)
[2020-05-23] MEDS: Calcium Carbonate 500 MG TAB PO SCH (09:34)
[2020-05-23] MEDS: Gabapentin 100 MG CAP PO SCH ×3 (09:34→20:04)
[2020-05-23] MEDS: Metoprolol Tartrate 25 MG TAB PO SCH ×2 (09:35→20:04)
[2020-05-23] MEDS: Ipratropium/Albuterol Sulfate 4 GM AER IH SCH ×2 (09:38→20:06)
[2020-05-23] MEDS: Famotidine 20 MG TAB PO SCH ×2 (09:38→20:04)
[2020-05-23] MEDS: Warfarin Sodium 2 MG TAB PO SCH (17:48)
[2020-05-24] MEDS: Acetaminophen 500 MG TAB PO SCH ×4 (05:05→23:11)
[2020-05-24 05:36] LABS: INR-International Normal Ratio 1.6; Prothrombin Time 19.8 sec (12.0-14.7)
[2020-05-24] MEDS: guaiFENesin/DM ER PO SCH ×2 (09:26→20:16)
[2020-05-24] MEDS: Ferrous Sulfate 325 MG TAB PO SCH ×2 (09:27→18:04)
[2020-05-24] MEDS: Cholecalciferol (Vitamin D3) 400 UNITS TAB PO SCH (09:27)
[2020-05-24] MEDS: Calcium Carbonate 500 MG TAB PO SCH (09:27)
[2020-05-24] MEDS: Famotidine 20 MG TAB PO SCH ×2 (09:27→20:16)
[2020-05-24] MEDS: Metoprolol Tartrate 25 MG TAB PO SCH ×2 (09:27→20:15)
[2020-05-24] MEDS: Zinc Sulfate 220 MG CAP PO SCH (09:27)
[2020-05-24] MEDS: Ascorbic Acid 500 mg Chewable Tablet PO SCH ×2 (09:28→20:15)
[2020-05-24] MEDS: Gabapentin 100 MG CAP PO SCH ×3 (09:28→20:19)
[2020-05-24] MEDS: Ipratropium/Albuterol Sulfate 4 GM AER IH SCH ×2 (09:28→20:27)
[2020-05-24] MEDS: Warfarin Sodium 2 MG TAB PO SCH (18:04)
[2020-05-25] MEDS: Acetaminophen 500 MG TAB PO SCH ×4 (05:04→23:47)
[2020-05-25 05:25] LABS: INR-International Normal Ratio 1.5; Prothrombin Time 18.7 sec (12.0-14.7)
[2020-05-25] MEDS: guaiFENesin/DM ER PO SCH ×2 (09:16→21:13)
[2020-05-25] MEDS: Famotidine 20 MG TAB PO SCH ×2 (09:16→21:12)
[2020-05-25] MEDS: Metoprolol Tartrate 25 MG TAB PO SCH ×2 (09:16→21:12)
[2020-05-25] MEDS: Cholecalciferol (Vitamin D3) 400 UNITS TAB PO SCH (09:16)
[2020-05-25] MEDS: Ferrous Sulfate 325 MG TAB PO SCH ×2 (09:16→17:50)
[2020-05-25] MEDS: Calcium Carbonate 500 MG TAB PO SCH (09:17)
[2020-05-25] MEDS: Ipratropium/Albuterol Sulfate 4 GM AER IH SCH ×2 (09:17→21:13)
[2020-05-25] MEDS: Gabapentin 100 MG CAP PO SCH ×3 (09:17→21:11)
[2020-05-25] MEDS: Ascorbic Acid 500 mg Chewable Tablet PO SCH ×2 (09:17→21:13)
[2020-05-25] MEDS: Zinc Sulfate 220 MG CAP PO SCH (09:17)
[2020-05-25] MEDS: Warfarin Sodium 2.5 MG TAB PO SCH (17:50)
[2020-05-26] MEDS: Acetaminophen 500 MG TAB PO SCH ×4 (05:29→23:39)
[2020-05-26 05:31] LABS: Prothrombin Time 19.4 sec (12.0-14.7)
[2020-05-26 05:33] LABS: INR-International Normal Ratio 1.6
[2020-05-26] MEDS: Gabapentin 100 MG CAP PO SCH ×3 (09:29→19:39)
[2020-05-26] MEDS: guaiFENesin/DM ER PO SCH ×2 (09:29→19:40)
[2020-05-26] MEDS: Cholecalciferol (Vitamin D3) 400 UNITS TAB PO SCH (09:29)
[2020-05-26] MEDS: Ferrous Sulfate 325 MG TAB PO SCH ×2 (09:29→17:36)
[2020-05-26] MEDS: Zinc Sulfate 220 MG CAP PO SCH (09:29)
[2020-05-26] MEDS: Famotidine 20 MG TAB PO SCH ×2 (09:29→19:40)
[2020-05-26] MEDS: Ascorbic Acid 500 mg Chewable Tablet PO SCH ×2 (09:29→19:40)
[2020-05-26] MEDS: Metoprolol Tartrate 25 MG TAB PO SCH ×2 (09:29→19:40)
[2020-05-26] MEDS: Ipratropium/Albuterol Sulfate 4 GM AER IH SCH ×2 (09:30→19:58)
[2020-05-26] MEDS: Calcium Carbonate 500 MG TAB PO SCH (09:30)
[2020-05-26] MEDS: Warfarin Sodium 2.5 MG TAB PO SCH (17:37)
[2020-05-27] MEDS: Acetaminophen 500 MG TAB PO SCH ×4 (05:41→23:23)
[2020-05-27] MEDS: Ascorbic Acid 500 mg Chewable Tablet PO SCH ×2 (08:26→20:33)
[2020-05-27] MEDS: Calcium Carbonate 500 MG TAB PO SCH (08:26)
[2020-05-27] MEDS: Cholecalciferol (Vitamin D3) 400 UNITS TAB PO SCH (08:26)
[2020-05-27] MEDS: Ferrous Sulfate 325 MG TAB PO SCH ×2 (08:26→16:25)
[2020-05-27] MEDS: Famotidine 20 MG TAB PO SCH ×2 (08:27→20:31)
[2020-05-27] MEDS: Gabapentin 100 MG CAP PO SCH ×3 (08:28→20:32)
[2020-05-27] MEDS: Metoprolol Tartrate 25 MG TAB PO SCH ×2 (08:28→20:34)
[2020-05-27] MEDS: guaiFENesin/DM ER PO SCH ×2 (08:28→20:33)
[2020-05-27] MEDS: Zinc Sulfate 220 MG CAP PO SCH (08:29)
[2020-05-27] MEDS: Ipratropium/Albuterol Sulfate 4 GM AER IH SCH ×2 (08:29→20:35)
[2020-05-27] MEDS: Warfarin Sodium 2.5 MG TAB PO SCH (16:26)
[2020-05-27] MEDS ORDERED: Sodium Chloride 0.9% 0 ML ONE (17:25)
[2020-05-28] MEDS: Acetaminophen 500 MG TAB PO SCH ×3 (05:15→17:47)
[2020-05-28 05:22] VITALS: BMI 30.2
[2020-05-28 05:26] LABS: INR-International Normal Ratio 1.8; Prothrombin Time 21.7 sec (12.0-14.7)
[2020-05-28] MEDS: Cholecalciferol (Vitamin D3) 400 UNITS TAB PO SCH (08:23)
[2020-05-28] MEDS: Gabapentin 100 MG CAP PO SCH ×3 (08:23→20:13)
[2020-05-28] MEDS: Ascorbic Acid 500 mg Chewable Tablet PO SCH ×2 (08:23→20:13)
[2020-05-28] MEDS: Ferrous Sulfate 325 MG TAB PO SCH ×2 (08:23→17:46)
[2020-05-28] MEDS: Zinc Sulfate 220 MG CAP PO SCH (08:24)
[2020-05-28] MEDS: guaiFENesin/DM ER PO SCH ×2 (08:24→20:12)
[2020-05-28] MEDS: Metoprolol Tartrate 25 MG TAB PO SCH ×2 (08:24→20:14)
[2020-05-28] MEDS: Famotidine 20 MG TAB PO SCH ×2 (08:25→20:13)
[2020-05-28] MEDS: Ipratropium/Albuterol Sulfate 4 GM AER IH SCH ×2 (08:35→20:15)
[2020-05-28] MEDS: Calcium Carbonate 500 MG TAB PO SCH (08:35)
[2020-05-28] MEDS: Warfarin Sodium 2.5 MG TAB PO SCH (17:47)
[2020-05-29] MEDS: Acetaminophen 500 MG TAB PO SCH ×4 (00:07→16:58)
[2020-05-29 05:53] LABS: INR-International Normal Ratio 1.9; Prothrombin Time 21.9 sec (12.0-14.7)
[2020-05-29] MEDS: Famotidine 20 MG TAB PO SCH ×2 (08:22→20:47)
[2020-05-29] MEDS: Gabapentin 100 MG CAP PO SCH ×3 (08:22→20:47)
[2020-05-29] MEDS: Ascorbic Acid 500 mg Chewable Tablet PO SCH ×2 (08:22→20:47)
[2020-05-29] MEDS: Calcium Carbonate 500 MG TAB PO SCH (08:23)
[2020-05-29] MEDS: Metoprolol Tartrate 25 MG TAB PO SCH ×2 (08:23→20:49)
[2020-05-29] MEDS: Zinc Sulfate 220 MG CAP PO SCH (08:24)
[2020-05-29] MEDS: Ipratropium/Albuterol Sulfate 4 GM AER IH SCH ×2 (08:24→20:49)
[2020-05-29] MEDS: Cholecalciferol (Vitamin D3) 400 UNITS TAB PO SCH (08:24)
[2020-05-29] MEDS: Ferrous Sulfate 325 MG TAB PO SCH ×2 (08:24→16:58)
[2020-05-29] MEDS: guaiFENesin/DM ER PO SCH ×2 (08:24→20:48)
[2020-05-29] MEDS ORDERED: Hydrochlorothiazide 25 MG TAB PO SCH (15:15)
[2020-05-29] MEDS: Warfarin Sodium 2.5 MG TAB PO SCH (16:59)
[2020-05-30] MEDS: Acetaminophen 500 MG TAB PO SCH ×4 (00:03→17:19)
[2020-05-30 07:14] LABS: INR-International Normal Ratio 1.9; Prothrombin Time 21.8 sec (12.0-14.7)
[2020-05-30] MEDS: Gabapentin 100 MG CAP PO SCH ×3 (08:05→20:33)
[2020-05-30] MEDS: guaiFENesin/DM ER PO SCH ×2 (08:05→20:34)
[2020-05-30] MEDS: Famotidine 20 MG TAB PO SCH ×2 (08:05→20:37)
[2020-05-30] MEDS: Zinc Sulfate 220 MG CAP PO SCH (08:05)
[2020-05-30] MEDS: Ipratropium/Albuterol Sulfate 4 GM AER IH SCH ×2 (08:06→20:33)
[2020-05-30] MEDS: Hydrochlorothiazide 25 MG TAB PO SCH (08:06)
[2020-05-30] MEDS: Calcium Carbonate 500 MG TAB PO SCH (08:06)
[2020-05-30] MEDS: Metoprolol Tartrate 25 MG TAB PO SCH ×2 (08:06→20:34)
[2020-05-30] MEDS: Cholecalciferol (Vitamin D3) 400 UNITS TAB PO SCH (08:06)
[2020-05-30] MEDS: Ascorbic Acid 500 mg Chewable Tablet PO SCH ×2 (08:06→20:32)
[2020-05-30] MEDS: Ferrous Sulfate 325 MG TAB PO SCH ×2 (08:06→17:18)
[2020-05-30] MEDS: Warfarin Sodium 2.5 MG TAB PO SCH (17:19)
[2020-05-31] MEDS: Acetaminophen 500 MG TAB PO SCH ×4 (00:18→17:49)
[2020-05-31 05:49] LABS: Prothrombin Time 22.9 sec (12.0-14.7)
[2020-05-31] MEDS: Gabapentin 100 MG CAP PO SCH ×3 (09:05→20:12)
[2020-05-31] MEDS: guaiFENesin/DM ER PO SCH ×2 (09:06→20:12)
[2020-05-31] MEDS: Zinc Sulfate 220 MG CAP PO SCH (09:06)
[2020-05-31] MEDS: Famotidine 20 MG TAB PO SCH ×2 (09:06→20:12)
[2020-05-31] MEDS: Hydrochlorothiazide 25 MG TAB PO SCH (09:06)
[2020-05-31] MEDS: Metoprolol Tartrate 25 MG TAB PO SCH ×2 (09:07→20:13)
[2020-05-31] MEDS: Ferrous Sulfate 325 MG TAB PO SCH ×2 (09:07→17:49)
[2020-05-31] MEDS: Cholecalciferol (Vitamin D3) 400 UNITS TAB PO SCH (09:08)
[2020-05-31] MEDS: Calcium Carbonate 500 MG TAB PO SCH (09:09)
[2020-05-31] MEDS: Ipratropium/Albuterol Sulfate 4 GM AER IH SCH ×2 (09:09→20:32)
[2020-05-31] MEDS: Ascorbic Acid 500 mg Chewable Tablet PO SCH ×2 (09:09→20:12)
[2020-05-31] MEDS: Warfarin Sodium 2.5 MG TAB PO SCH (17:48)
[2020-06-01] MEDS: Acetaminophen 500 MG TAB PO SCH ×4 (00:12→18:31)
[2020-06-01 07:56] LABS: INR-International Normal Ratio 1.7; Prothrombin Time 20.6 sec (12.0-14.7)
[2020-06-01] MEDS: Ascorbic Acid 500 mg Chewable Tablet PO SCH ×2 (08:02→20:23)
[2020-06-01] MEDS: Ferrous Sulfate 325 MG TAB PO SCH ×2 (08:02→16:25)
[2020-06-01] MEDS: Hydrochlorothiazide 25 MG TAB PO SCH (08:03)
[2020-06-01] MEDS: Gabapentin 100 MG CAP PO SCH ×3 (08:03→20:22)
[2020-06-01] MEDS: guaiFENesin/DM ER PO SCH ×2 (08:04→20:23)
[2020-06-01] MEDS: Calcium Carbonate 500 MG TAB PO SCH (08:04)
[2020-06-01] MEDS: Famotidine 20 MG TAB PO SCH ×2 (08:04→20:23)
[2020-06-01] MEDS: Zinc Sulfate 220 MG CAP PO SCH (08:05)
[2020-06-01] MEDS: Metoprolol Tartrate 25 MG TAB PO SCH ×2 (08:05→20:24)
[2020-06-01] MEDS: Ipratropium/Albuterol Sulfate 4 GM AER IH SCH ×2 (08:06→20:24)
[2020-06-01] MEDS: Cholecalciferol (Vitamin D3) 400 UNITS TAB PO SCH (08:06)
[2020-06-01] MEDS: Warfarin Sodium 2.5 MG TAB PO SCH (16:26)
[2020-06-02] MEDS: Acetaminophen 500 MG TAB PO SCH ×4 (00:50→16:50)
[2020-06-02 05:34] LABS: INR-International Normal Ratio 1.7; Prothrombin Time 20.4 sec (12.0-14.7)
[2020-06-02 07:53] VITALS: BP 115/72; TEMP 97.7
[2020-06-02] MEDS: Gabapentin 100 MG CAP PO SCH ×2 (08:40→15:39)
[2020-06-02] MEDS: Ferrous Sulfate 325 MG TAB PO SCH ×2 (08:40→16:50)
[2020-06-02] MEDS: Hydrochlorothiazide 25 MG TAB PO SCH (08:40)
[2020-06-02] MEDS: Zinc Sulfate 220 MG CAP PO SCH (08:41)
[2020-06-02] MEDS: Calcium Carbonate 500 MG TAB PO SCH (08:41)
[2020-06-02] MEDS: Metoprolol Tartrate 25 MG TAB PO SCH (08:41)
[2020-06-02] MEDS: Famotidine 20 MG TAB PO SCH (08:41)
[2020-06-02] MEDS: Cholecalciferol (Vitamin D3) 400 UNITS TAB PO SCH (08:41)
[2020-06-02] MEDS: Ascorbic Acid 500 mg Chewable Tablet PO SCH (08:41)
[2020-06-02] MEDS: guaiFENesin/DM ER PO SCH (08:41)
[2020-06-02] MEDS: Ipratropium/Albuterol Sulfate 4 GM AER IH SCH (08:42)
[2020-06-02] MEDS ORDERED: Warfarin Sodium 1 MG TAB PO SCH (17:00)
--- NOTE | 2020-06-03 02:58 | DIS ---
DATE OF ADMISSION: 05/08/2020 DATE OF DISCHARGE: 06/02/2020 PRIMARY CARE PHYSICIAN: Patient does not have any. DISCHARGE DIAGNOSES: 1. Right intertrochanteric fracture, status post open reduction internal fixation. 2. Physical deconditioning. 3. Gait instability. 4. Large basal cell carcinoma to the left face, neck, and ear. 5. Atrial fibrillation with rapid ventricular response, currently rate controlled. 6. Long-term use of anticoagulant, Coumadin. 7. COVID-19 pneumonia. DISCHARGE DISPOSITION: Back to home. ACTIVITIES: Patient to follow up with PCP within one week. Patient to have repeat chest x-ray in four weeks. Patient to follow up with Dr. Brooke on June 12, 2020. Patient to have weekly INR checks. Patient to ambulate with a four-wheel walker at all times. Patient to follow up with Oncology as an outpatient. DISCHARGE MEDICATIONS: 1. Tylenol 1000 q.6 scheduled. 2. Combivent 1 puff q.6 p.r.n. 3. Vitamin C 500 b.i.d. 4. Calcium carbonate 500 daily. 5. Vitamin D 400 units daily. 6. Cardizem 180 mg daily. 7. Pepcid 20 b.i.d. 8. Ferrous sulfate 325 b.i.d. 9. Neurontin 100 t.i.d. 10. Hydrochlorothiazide 12.5 mg daily. 11. Metoprolol 12.5 mg p.o. b.i.d. 12. Warfarin 3 mg daily. 13. Zinc sulfate 220 mg daily. BRIEF HOSPITAL COURSE: Patient is a very pleasant 79-year-old woman, who was brought to the emergency room after a ground level fall. She underwent evaluation and examination in the emergency room and was noted to have a right proximal intertrochanteric trochanteric femur fracture. Patient does have a history of atrial fibrillation and INR was 2.5, so she was unable to undergo surgery until the INR was less than 1.5, which was eventually obtained. Patient underwent orthopedic surgery and she was also noted to have a large neglected squamous cell carcinoma to the face and neck and she was seen by the Oncology team and a biopsy of the large soft tissue revision was done which showed basal cell carcinoma and due to age, the location, and the patient's comorbidities, it was determined nonoperative at this time and family to decide with possibly home hospice. The patient was able to start physical therapy while in [place] in [place] and due to her deconditioning, the decision was made to follow up to transfer here to [facility] for skilled rehabilitation on continuation of therapy. Upon admission here, patient was able to participate in physical therapy slowly. Unfortunately on the 16 of May, the patient developed nausea, cough and shortness of breath. Chest x-ray confirmed COVID-19 bilateral pneumonia. Patient was placed on droplet isolation and COVID-19 test was done. On the 16 of April, patient was positive for COVID-19. She was started on Combivent at bedside. She was started on prednisone 20 mg x5 days and azithromycin 500 mg x5 days. Patient was started on supplemental oxygen nasal cannula and her symptoms progressively improved. Patient completed a course of antibiotic and steroid and she was afebrile throughout hospitalization. Patient was able to be off isolation on the 26 of May, and she continued her physical therapy. Patient continued to progress and she was able to ambulate with a rolling walker. Patient and daughter decided against hospice care for discharge planning and patient chose to be discharged with [facility]. During hospitalization, patient's admission was also complicated by supratherapeutic INR and Coumadin was adjusted and on day of discharge her PT was 20.4, INR of 1.7. During hospitalization, patient was also noted to have acute blood loss anemia, which slowly improved with ferrous sulfate b.i.d. Patient was discharged in a stable condition with her daughter. Discharge vital signs; temperature 97.7, pulse 85, respirations 18, O2 saturation 92% on room air, and blood pressure 115/72. Total time used to prepare, evaluate, and discharge patient was greater than 45 minutes. Job ID: [id number]
== END 2020-06-02 17:00 | disposition home health service (06) | DRG 947 ==
LOC: MADMS 17:21
PROVIDERS: ADMIT Family Medicine; ATTEND Family Medicine
PROC: 8E0ZXY6 Isolation (ICD-10-PCS; principal; 2020-05-08)
DX: R53.81 Other malaise (principal); J12.89 Other viral pneumonia; U07.1 COVID-19; D62 Acute posthemorrhagic anemia; S72.141D Displaced intertrochanteric fracture of right femur, subsequent encounter for closed fracture with routine healing; R26.89 Other abnormalities of gait and mobility; C44.310 Basal cell carcinoma of skin of unspecified parts of face; I48.91 Unspecified atrial fibrillation; I10 Essential (primary) hypertension; W18.30XA Fall on same level, unspecified, initial encounter; Z66 Do not resuscitate; R19.7 Diarrhea, unspecified; Z79.01 Long term (current) use of anticoagulants
CPT/HCPCS: 36415; 71045; 82565; 85014; 85018; 85049; 85610; 87635; J1650; J7512; Q0162; U0003

== ENCOUNTER 2020-06-16 12:03 | Outpatient (CLI) | payer MEDICARE, BC ==
[2020-06-16 12:23] LABS: INR-International Normal Ratio 1.7; Prothrombin Time 20.7 sec (12.0-14.7)
== END 2020-06-16 12:04 | disposition home or self-care (01) ==
LOC: MADLAB 12:03
PROVIDERS: ATTEND Internal Medicine Cardiovascular Disease
DX: I48.91 Unspecified atrial fibrillation (principal)
CPT/HCPCS: 85610

== ENCOUNTER 2020-06-30 11:42 | Outpatient (CLI) | payer MEDICARE ==
[2020-06-30 11:55] LABS: INR-International Normal Ratio 1.6; Prothrombin Time 19.6 sec (12.0-14.7)
== END 2020-06-30 11:43 | disposition home or self-care (01) ==
LOC: MADLAB 11:42
PROVIDERS: ATTEND Internal Medicine Cardiovascular Disease
DX: I48.91 Unspecified atrial fibrillation (principal)
CPT/HCPCS: 85610

== ENCOUNTER 2020-07-01 10:17 | Outpatient (CLI) | payer MEDICARE ==
[2020-07-01 10:54] LABS: INR-International Normal Ratio 1.4; Prothrombin Time 17.8 sec (12.0-14.7)
== END 2020-07-01 10:18 | disposition home or self-care (01) ==
LOC: MADLAB 10:17
PROVIDERS: ATTEND Internal Medicine Cardiovascular Disease
DX: Z51.81 Encounter for therapeutic drug level monitoring (principal); I48.91 Unspecified atrial fibrillation; Z79.01 Long term (current) use of anticoagulants
CPT/HCPCS: 36415; 85610

== ENCOUNTER 2020-07-14 12:44 | Outpatient (CLI) | payer MEDICARE ==
[2020-07-14 13:18] LABS: INR-International Normal Ratio 1.7; Prothrombin Time 20.1 sec (12.0-14.7)
== END 2020-07-14 12:45 | disposition home or self-care (01) ==
LOC: MADLABSP 12:44
PROVIDERS: ATTEND Internal Medicine Cardiovascular Disease
DX: I48.91 Unspecified atrial fibrillation (principal)
CPT/HCPCS: 85610

== ENCOUNTER 2020-07-28 14:12 | Outpatient (CLI) | payer MEDICARE ==
[2020-07-28 16:59] LABS: INR-International Normal Ratio 2.5; Prothrombin Time 27.2 sec (12.0-14.7)
== END 2020-07-28 14:13 | disposition home or self-care (01) ==
LOC: MADLAB 14:12
PROVIDERS: ATTEND Internal Medicine Cardiovascular Disease
DX: I48.91 Unspecified atrial fibrillation (principal)
CPT/HCPCS: 85610

== ENCOUNTER 2020-08-11 13:42 | Outpatient (CLI) | payer MEDICARE, BC ==
[2020-08-11 13:49] LABS: INR-International Normal Ratio 2.6; Prothrombin Time 28.6 sec (12.0-14.7)
== END 2020-08-11 13:43 | disposition home or self-care (01) ==
LOC: MADLAB 13:42
PROVIDERS: ATTEND Family Medicine
DX: C44.41 Basal cell carcinoma of skin of scalp and neck (principal)
CPT/HCPCS: 85610

== ENCOUNTER 2020-09-01 15:45 | Outpatient (CLI) | payer MEDICARE ==
[2020-09-01 16:13] LABS: INR-International Normal Ratio 2.8; Prothrombin Time 30.2 sec (12.0-14.7)
== END 2020-09-01 15:46 | disposition home or self-care (01) ==
LOC: MADLABSP 15:45
PROVIDERS: ATTEND Internal Medicine Cardiovascular Disease
DX: I48.91 Unspecified atrial fibrillation (principal)
CPT/HCPCS: 85610

== ENCOUNTER 2020-09-29 13:26 | Outpatient (CLI) | payer MEDICARE ==
[2020-09-29 15:45] LABS: INR-International Normal Ratio 2.3; Prothrombin Time 25.6 sec (12.0-14.7)
== END 2020-09-29 13:27 | disposition home or self-care (01) ==
LOC: MADLAB 13:26
PROVIDERS: ATTEND Internal Medicine Cardiovascular Disease
DX: I48.91 Unspecified atrial fibrillation (principal)
CPT/HCPCS: 85610

== ENCOUNTER 2020-10-27 14:42 | Outpatient (CLI) | payer MEDICARE, BC ==
[2020-10-27 14:56] LABS: INR-International Normal Ratio 3.1; Prothrombin Time 32.7 sec (12.0-14.7)
== END 2020-10-27 14:43 | disposition home or self-care (01) ==
LOC: MADLAB 14:42
PROVIDERS: ATTEND Internal Medicine Cardiovascular Disease
DX: I48.91 Unspecified atrial fibrillation (principal)
CPT/HCPCS: 85610

== ENCOUNTER 2020-10-31 11:32 | Emergency (ER) | payer MEDICARE, BC ==
[2020-10-31 12:35] LABS: #Basophils 0.1 thou/uL (0.0-0.2); #Monocytes 0.7 thou/uL (0.11-0.59); #Neutrophils 10.8 thou/uL (1.40-6.50); %Basophils 0.4 % (0.0-1.0); %Eosinophils 0.3 % (0.0-10.0); %Lymphocytes 7.7 % (21.0-51.0); %Monocytes 5.4 % (0.0-10.0); %Neutrophils 86.2 % (42.0-75.0); Hemoglobin 10.4 g/dL (12.0-16.0); Mean Corpuscular HGB CONC 31.3 g/dL (32.0-36.0); Mean Corpuscular Hemoglobin 31.9 pg (27.0-31.0); Mean Corpuscular Volume 102.2 fL (78.0-98.0); Mean Platelet Volume 6.8 fL (7.4-10.4); Platelet Count 343 thou/uL (130-400); RBC Distribution Width 14.4 % (11.5-14.5); Red Blood Cell (RBC) Count 3.26 mill/uL (4.20-5.40); White Blood Cell (WBC) Count 12.5 thou/uL (4.8-10.8)
[2020-10-31 12:41] LABS: ALT (SGPT) 12 U/L (8-55); AST (SGOT) 15 U/L (5-34); Albumin 3.3 g/dL (3.4-4.8); Alkaline Phosphatase 266 U/L (40-110); Anion Gap 13 mmol/L (10-20); BUN (Urea Nitrogen) 13 mg/dL (9.8-20.1); Bilirubin, Total 1.5 mg/dL (0.2-1.2); Calc. Creatinine Clearance 0 mL/min (70-130); Calcium 8.7 mg/dL (7.8-10.44); Carbon Dioxide 29 mmol/L (23-31); Chloride 98 mmol/L (98-107); Glucose 108 mg/dL (83-110); Potassium 4.1 mmol/L (3.5-5.1); Protein, Total 7.3 g/dL (5.8-8.1); Sodium 136 mmol/L (136-145)
[2020-10-31 13:06] LABS: INR-International Normal Ratio 3.3; Prothrombin Time 34.2 sec (12.0-14.7)
[2020-10-31 13:07] LABS: PTT 56.8 sec (22.9-36.1)
[2020-10-31] MEDS ORDERED: Furosemide 40 MG/4 ML VIAL ONE (13:09)
== END 2020-10-31 14:53 | disposition home or self-care (01) ==
LOC: MADERS 11:32
DX: I11.0 Hypertensive heart disease with heart failure (principal); I50.9 Heart failure, unspecified; G51.0 Bell's palsy; I48.91 Unspecified atrial fibrillation; Z86.16 Personal history of COVID-19; Z79.899 Other long term (current) drug therapy; Z79.01 Long term (current) use of anticoagulants; Z85.828 Personal history of other malignant neoplasm of skin
CPT/HCPCS: 71046; 80053; 83605; 83880; 84484; 85025; 85610; 85730; 87040; 93005; 94760; J1940

== ENCOUNTER 2020-11-10 17:55 | Outpatient (CLI) | payer MEDICARE, BC ==
[2020-11-10 18:14] LABS: INR-International Normal Ratio 3.7; Prothrombin Time 37.5 sec (12.0-14.7)
== END 2020-11-10 17:56 | disposition home or self-care (01) ==
LOC: MADLAB 17:55
PROVIDERS: ATTEND Family Medicine
DX: I48.91 Unspecified atrial fibrillation (principal)
CPT/HCPCS: 85610

== ENCOUNTER 2020-11-24 17:21 | Outpatient (CLI) | payer MEDICARE, BC ==
[2020-11-24 17:30] LABS: INR-International Normal Ratio 2.8; Prothrombin Time 29.8 sec (12.0-14.7)
== END 2020-11-24 17:22 | disposition home or self-care (01) ==
LOC: MADLAB 17:21
DX: Z51.81 Encounter for therapeutic drug level monitoring (principal); C44.41 Basal cell carcinoma of skin of scalp and neck; Z79.01 Long term (current) use of anticoagulants
CPT/HCPCS: 85610

== ENCOUNTER 2020-12-18 15:37 | Emergency (ER) | payer MEDICARE, BC ==
[2020-12-18 16:39] LABS: #Basophils 0.1 thou/uL (0.0-0.2); #Eosinphils 0.2 thou/uL (0.0-0.7); #Lymphocytes 1.3 thou/uL (1.20-3.40); #Monocytes 0.6 thou/uL (0.11-0.59); #Neutrophils 6.4 thou/uL (1.40-6.50); %Basophils 1.1 % (0.0-1.0); %Eosinophils 2.8 % (0.0-10.0); %Lymphocytes 14.9 % (21.0-51.0); %Monocytes 6.9 % (0.0-10.0); %Neutrophils 74.3 % (42.0-75.0); Hemoglobin 11.9 g/dL (12.0-16.0); Mean Corpuscular HGB CONC 31.7 g/dL (32.0-36.0); Mean Corpuscular Hemoglobin 31.2 pg (27.0-31.0); Mean Corpuscular Volume 98.4 fL (78.0-98.0); Mean Platelet Volume 6.6 fL (7.4-10.4); Platelet Count 399 thou/uL (130-400); RBC Distribution Width 14.3 % (11.5-14.5); Red Blood Cell (RBC) Count 3.82 mill/uL (4.20-5.40); White Blood Cell (WBC) Count 8.6 thou/uL (4.8-10.8)
[2020-12-18 16:44] LABS: INR-International Normal Ratio 2.9; PTT 43.3 sec (22.9-36.1); Prothrombin Time 30.8 sec (12.0-14.7)
[2020-12-18 16:53] LABS: ALT (SGPT) 25 U/L (8-55); AST (SGOT) 23 U/L (5-34); Albumin 2.6 g/dL (3.4-4.8); Alkaline Phosphatase 236 U/L (40-110); Anion Gap 14 mmol/L (10-20); BUN (Urea Nitrogen) 13 mg/dL (9.8-20.1); Bilirubin, Total 0.6 mg/dL (0.2-1.2); Calc. Creatinine Clearance 0 mL/min (70-130); Carbon Dioxide 25 mmol/L (23-31); Chloride 93 mmol/L (98-107); Globulin 4.1 g/dL (2.4-3.5); Glucose 147 mg/dL (83-110); Protein, Total 6.7 g/dL (5.8-8.1); Sodium 128 mmol/L (136-145)
[2020-12-18 17:11] LABS: CKMB 5.8 ng/mL (0-6.6)
[2020-12-18] MEDS ORDERED: Sodium Chloride 0.9% 500 ML ONE (17:18)
[2020-12-18] MEDS ORDERED: Furosemide 40 MG/4 ML VIAL ONE (18:15)
== END 2020-12-18 20:29 | disposition short-term general hospital (02) ==
LOC: MADERS 15:37
DX: I11.0 Hypertensive heart disease with heart failure (principal); I50.9 Heart failure, unspecified; R79.89 Other specified abnormal findings of blood chemistry; R60.0 Localized edema; I48.91 Unspecified atrial fibrillation; Z85.828 Personal history of other malignant neoplasm of skin; Z79.899 Other long term (current) drug therapy; Z79.01 Long term (current) use of anticoagulants
CPT/HCPCS: 71045; 80053; 82553; 83605; 83880; 84484; 85025; 85610; 85730; 87040; 93005; 94760; 96374; J1940; J7030

== ENCOUNTER 2020-12-29 16:33 | Outpatient (CLI) | payer MEDICARE, BC ==
[2020-12-29 16:48] LABS: Prothrombin Time 53.4 sec (12.0-14.7)
[2020-12-29 16:52] LABS: INR-International Normal Ratio 5.8
== END 2020-12-29 16:34 | disposition home or self-care (01) ==
LOC: MADLABSP 16:33
PROVIDERS: ATTEND Internal Medicine Cardiovascular Disease
DX: I48.91 Unspecified atrial fibrillation (principal)
CPT/HCPCS: 85610

== ENCOUNTER 2021-01-07 12:04 | Outpatient (CLI) | payer MEDICARE, BC ==
[2021-01-07 13:08] LABS: Anion Gap 12 mmol/L (10-20); BUN (Urea Nitrogen) 22 mg/dL (9.8-20.1); Calc. Creatinine Clearance 0 mL/min (70-130); Calcium 7.9 mg/dL (7.8-10.44); Carbon Dioxide 30 mmol/L (23-31); Chloride 101 mmol/L (98-107); Glucose 139 mg/dL (83-110); Potassium 4.3 mmol/L (3.5-5.1); Sodium 139 mmol/L (136-145)
[2021-01-07 13:21] LABS: INR-International Normal Ratio 9.4
[2021-01-07 13:32] LABS: Prothrombin Time 78.2 sec (12.0-14.7)
== END 2021-01-07 12:05 | disposition home or self-care (01) ==
LOC: MADLAB 12:04
PROVIDERS: ATTEND Internal Medicine Cardiovascular Disease
DX: I11.0 Hypertensive heart disease with heart failure (principal); I50.9 Heart failure, unspecified; I48.91 Unspecified atrial fibrillation
CPT/HCPCS: 80048; 83880; 85610

== ENCOUNTER 2021-02-16 08:41 | Emergency (ER) | payer MEDICARE, BC | END 2021-02-16 09:56 | disposition home or self-care (01) | LOC: MADERS 08:41 | DX: B87.1 Wound myiasis (principal); R60.0 Localized edema; R26.9 Unspecified abnormalities of gait and mobility; I10 Essential (primary) hypertension; I48.91 Unspecified atrial fibrillation; Z85.828 Personal history of other malignant neoplasm of skin; Z79.899 Other long term (current) drug therapy; Z79.01 Long term (current) use of anticoagulants | CPT/HCPCS: 99283 ==